=== PATIENT | male | born 1960 | race African-American/Black ===

== ENCOUNTER 2018-04-07 03:26 | Emergency (ER) | payer MEDICAID ==
[~2018-04-07] VITALS: Ht 182.9 cm; Wt 122.0 kg
[~2018-04-07 03:26] MED LIST: AMLO5TAB88 PO; CLON0.2T PO; CLOP75TA16 PO; FURO-151 PO; GLIP5TAB12 PO; METF10002 PO; SIMVASTATIN PO; SPIR25TA4 PO
[2018-04-07] MEDS ORDERED: ONDANSETRON HCL 4MG/2ML VIAL IV STA (04:50)
[2018-04-07] MEDS ORDERED: MORPHINE SULFATE 4 MG/ML CPJ (NOT FOR IM USE) IV STA (04:50)
[2018-04-07] MEDS ORDERED: SODIUM CHLORIDE 0.9% 1,000 ML IV ONE (04:50)
[2018-04-07] MEDS ORDERED: CLINDAMYCIN 600 MG in DEXTROSE 5% WATER 50 ML IV ONE (05:00)
[2018-04-07 05:28] LABS: BASOPHILS % 0.2 % (0.0-2.0); HEMOGLOBIN. 12.9 g/dL (14.0-18.0); LYMPHOCYTES % 12.5 % (20.0-50.0); MEAN CORPUSCULAR HEMOGLOBIN 28.4 pg (28.0-32.0); MEAN CORPUSCULAR VOLUME 81.3 fL (80.0-94.0); MONOCYTES % 9.9 % (2.0-8.0); NEUTROPHILS % 77.4 % (40.0-76.0); PLATELET 180 x1000/uL (130-400); RED BLOOD CELL COUNT 4.55 mill/uL (4.7-6.1); RED CELL DISTRIBUTION WIDTH 12.7 % (11.6-14.6)
[2018-04-07 05:32] LABS: CHLORIDE 103 mEq/L (98-107)
[2018-04-07 07:01] VITALS: BP 148/78
== END 2018-04-07 07:06 | disposition home or self-care (01) ==
LOC: ER 03:43
DX: L03.115 Cellulitis of right lower limb (principal); E78.00 Pure hypercholesterolemia, unspecified; I10 Essential (primary) hypertension; E11.9 Type 2 diabetes mellitus without complications; F14.10 Cocaine abuse, uncomplicated; Z79.84 Long term (current) use of oral hypoglycemic drugs; Z95.5 Presence of coronary angioplasty implant and graft; Z95.820 Peripheral vascular angioplasty status with implants and grafts
CPT/HCPCS: 36415; 73560; 80053; 83605; 85025; 87040; 96365; 96366; 96375; 99285; J2270; J2405; J3490; J7030; J7060

== ENCOUNTER 2018-09-22 05:40 | Emergency (ER) | payer MEDICAID ==
[~2018-09-22] VITALS: Ht 182.9 cm; Wt 116.0 kg
[~2018-09-22 05:40] MED LIST changes: +METF-416 PO; -METF10002 PO; -SPIR25TA4 PO; +SPIR25TA6 PO
[2018-09-22 07:24] VITALS: BP 130/66
== END 2018-09-22 07:30 | disposition home or self-care (01) ==
LOC: ER 05:40
DX: R04.0 Epistaxis (principal); E11.9 Type 2 diabetes mellitus without complications; I10 Essential (primary) hypertension; E78.00 Pure hypercholesterolemia, unspecified; I51.9 Heart disease, unspecified; F14.10 Cocaine abuse, uncomplicated; Z86.73 Personal history of transient ischemic attack (TIA), and cerebral infarction without residual deficits; Z79.899 Other long term (current) drug therapy; Z98.890 Other specified postprocedural states
CPT/HCPCS: 82962; 99283

== ENCOUNTER 2019-05-21 17:27 | Emergency (ER) | payer MEDICAID ==
[~2019-05-21] VITALS: Ht 182.9 cm; Wt 107.9 kg
[~2019-05-21 17:27] MED LIST changes: -CLOP75TA16 PO; +CLOP75TA4 PO
[2019-05-21 19:45] VITALS: BP 136/92
== END 2019-05-21 19:56 | disposition home or self-care (01) ==
LOC: ER 17:27
DX: K64.4 Residual hemorrhoidal skin tags (principal); F14.10 Cocaine abuse, uncomplicated
CPT/HCPCS: 99283

== ENCOUNTER 2019-11-30 18:19 | Emergency (ER) | payer MEDICAID ==
[~2019-11-30] VITALS: Ht 182.9 cm; Wt 107.0 kg
[2019-11-30] MEDS ORDERED: SULFAMETHOXAZOLE/TRIMETHOPRIM 400/80MG TAB PO ONE (20:45)
[2019-11-30] MEDS ORDERED: LIDOCAINE HCL/PF 1% 10 MG/ML 5ML VIAL IJ ONE ×2 (20:45)
[2019-11-30] MEDS ORDERED: CEFTRIAXONE SODIUM 1 G/VIAL IM ONE (20:45)
[2019-11-30 22:06] VITALS: BP 145/102
== END 2019-11-30 22:08 | disposition home or self-care (01) ==
LOC: ER 18:19
DX: L03.032 Cellulitis of left toe (principal); E11.9 Type 2 diabetes mellitus without complications; E78.00 Pure hypercholesterolemia, unspecified; I11.0 Hypertensive heart disease with heart failure; I50.9 Heart failure, unspecified; F14.10 Cocaine abuse, uncomplicated
CPT/HCPCS: 10060; 82962; 96372; 99283; A4217; J0696; J3490; Z7610

== ENCOUNTER 2019-12-02 17:43 | Emergency (ER) | payer MEDICAID ==
[~2019-12-02] VITALS: Ht 182.9 cm; Wt 107.0 kg
[2019-12-02 17:52] VITALS: BP 137/100
== END 2019-12-02 19:15 | disposition home or self-care (01) ==
LOC: ER 17:59
DX: M79.674 Pain in right toe(s) (principal); E11.9 Type 2 diabetes mellitus without complications; I10 Essential (primary) hypertension; E78.00 Pure hypercholesterolemia, unspecified; F14.10 Cocaine abuse, uncomplicated; Z79.899 Other long term (current) drug therapy; Z79.84 Long term (current) use of oral hypoglycemic drugs
CPT/HCPCS: 99281

== ENCOUNTER 2020-02-22 01:51 | Emergency (ER) | payer MEDICAID ==
[~2020-02-22] VITALS: Ht 182.9 cm; Wt 110.9 kg
[2020-02-22] MEDS ORDERED: SODIUM CHLORIDE 0.9% 1,000 ML IV ONE (02:36)
[2020-02-22] MEDS ORDERED: VANCOMYCIN 1 G PREMIX 200 ML IV ONE (02:45)
[2020-02-22 03:12] LABS: BASOPHILS % 0.7 % (0.0-2.0); HEMATOCRIT. 34.3 % (42.0-52.0); HEMOGLOBIN. 11.8 g/dL (14.0-18.0); LYMPHOCYTES % 11.7 % (20.0-50.0); MEAN CORPUSCULAR VOLUME 81.3 fL (80.0-94.0); MEAN PLATELET VOLUME 8.4 fl (7.4-10.4); MONOCYTES % 6.4 % (2.0-8.0); NEUTROPHILS % 81.2 % (40.0-76.0); PLATELET 290 x1000/uL (130-400); RED BLOOD CELL COUNT 4.21 mill/uL (4.7-6.1); RED CELL DISTRIBUTION WIDTH 14.9 % (11.6-14.6)
[2020-02-22 03:18] LABS: CHLORIDE 101 mEq/L (98-107)
[2020-02-22] MEDS ORDERED: IOHEXOL-300 100 ML BOTTLE ONE (06:56)
[2020-02-22 07:53] VITALS: BP 143/100
== END 2020-02-22 12:54 | disposition short-term general hospital (02) ==
LOC: ER 01:51 → CANBEDREQ 09:52 → ER 12:54
DX: L03.116 Cellulitis of left lower limb (principal); R00.0 Tachycardia, unspecified; E11.9 Type 2 diabetes mellitus without complications; I10 Essential (primary) hypertension; Z79.899 Other long term (current) drug therapy
CPT/HCPCS: 36415; 71045; 73701; 80053; 82962; 83605; 84145; 85025; 87040; 93005; 96365; 96366; 99285; J3370; J7030; Q9967

== ENCOUNTER 2020-06-04 21:01 | Emergency (ER) | payer OTHER, MEDICAID ==
[~2020-06-04] VITALS: Ht 182.9 cm; Wt 102.0 kg
[2020-06-04 21:40] VITALS: BP 132/93
== END 2020-06-04 23:15 | disposition home or self-care (01) ==
LOC: ER 21:01
DX: Z48.01 Encounter for change or removal of surgical wound dressing (principal); T81.30XD Disruption of wound, unspecified, subsequent encounter; I10 Essential (primary) hypertension; Z90.49 Acquired absence of other specified parts of digestive tract
CPT/HCPCS: 99283

== ENCOUNTER 2022-01-12 18:49 | Inpatient (IN) | payer MEDICAID, OTHER ==
[~2022-01-12] VITALS: Ht 182.9 cm; Wt 104.3 kg
[~2022-01-12 18:49] MED LIST changes: +CLOP-31 PO; -CLOP75TA4 PO
[2022-01-12] MEDS ORDERED: DOPAMINE 400MG/250ML PREMIX 250 ML IV ONE (19:30)
[2022-01-12 20:11] LABS: BASOPHILS % 0.1 % (0.0-2.0); HEMATOCRIT. 33.1 % (42.0-52.0); HEMOGLOBIN. 10.9 g/dL (14.0-18.0); LYMPHOCYTES % 9.4 % (20.0-50.0); MEAN CORPUSCULAR VOLUME 82.1 fL (80.0-94.0); MEAN PLATELET VOLUME 9.9 fl (7.4-10.4); MONOCYTES % 5.5 % (2.0-8.0); PLATELET 171 x1000/uL (130-400); RED BLOOD CELL COUNT 4.04 mill/uL (4.7-6.1); RED CELL DISTRIBUTION WIDTH 14.2 % (11.6-14.6)
[2022-01-12 20:18] LABS: BG BASE EXCESS -2.3 mmol/L (-2.0-2.0); BG CARBOXYHEMOGLOBIN 0.4 % (0.5-1.5); BG DEOXYHEMOGLOBIN 6.8 % (0.0-5.0); BG HCO3 ACT 21.4 mmol/L (22.0-26.0); BG METHEMOGLOBIN 0.2 % (0.0-1.5); BG OXYGEN SATURATION 93.2 % (92.0-98.5); BG OXYHEMOGLOBIN 92.6 % (94.0-97.0); BG PCO2 33.2 mmHg (35.0-45.0); BG PH 7.427 (7.350-7.450); BG PO2 64.5 mmHg (75.0-100.0); BG SAMPLE SITE RIGHT RADIAL; BG TOTAL HEMOGLOBIN 11.6 g/dL (12.0-18.0); BG TOTAL RESPIRATORY RATE 18 b/min; BG VENT MODE NASAL CANNULA
[2022-01-12 20:20] LABS: CHLORIDE 106 mEq/L (98-107)
[2022-01-12 20:23] LABS: INR 1.1; PROTHROMBIN TIME 11.5 sec (9.6-11.0)
[2022-01-12 20:24] LABS: ETHANOL BLOOD < 10 mg/dL
[2022-01-12] MEDS ORDERED: NOREPINEPHRINE 8 MG in DEXT 5% WATER 242 ML IV STA (20:55)
[2022-01-12] MEDS ORDERED: NOREPINEPHRINE 8MG/250ML PMX 250 ML IV ONE (21:15)
[2022-01-12] MEDS ORDERED: NOREPINEPHRINE 8MG/250ML PMX 250 ML IV SCH (21:15)
[2022-01-12] MEDS ORDERED: ONDANSETRON HCL 4MG/2ML INJ IV ONE (22:00)
[2022-01-12] MEDS ORDERED: NOREPINEPHRINE 8 MG in DEXT 5% WATER 242 ML IV PRN (23:15)
[2022-01-13] MEDS ORDERED: ACETAMINOPHEN 325MG TABLET PO PRN ×2 (00:15)
[2022-01-13] MEDS ORDERED: DIPHENHYDRAMINE 50MG/ML VIAL IV PRN (00:15)
[2022-01-13] MEDS ORDERED: ONDANSETRON HCL 4MG/2ML INJ IV PRN (00:15)
[2022-01-13] MEDS ORDERED: MAGNESIUM/ALUMINUM HYDROXIDE/SIMETHICONE 30ML UDC PO PRN (00:15)
[2022-01-13] MEDS ORDERED: ZOLPIDEM TARTRATE 5MG TABLET PO PRN (00:15)
[2022-01-13] MEDS ORDERED: HYDRALAZINE 20MG/ML VIAL IV PRN (00:15)
[2022-01-13] MEDS ORDERED: DEXTROSE 50% WATER 50ML SYRINGE IV PRN (00:15)
[2022-01-13] MEDS ORDERED: DOPAMINE HCL 400 MG in DEXT 5% WATER 240 ML IV SCH (03:00)
[2022-01-13 03:25] VITALS: BP 107/81
[2022-01-13 04:00] VITALS: BP 107/81
[2022-01-13 04:06] LABS: CLARITY URINE CLOUDY (CLEAR); COLOR URINE DARK YELLOW (YELLOW); KETONES URINE TRACE (NEGATIVE); LEUKOCYTE ESTERASE URINE TRACE (NEGATIVE); NITRITE URINE NEGATIVE (NEGATIVE); OCCULT BLOOD URINE NEGATIVE (NEGATIVE); PH URINE 5.5 (4.5-8.0); PROTEIN URINE 1+ (NEGATIVE); SPECIFIC GRAVITY URINE 1.019 (1.005-1.030)
[2022-01-13 04:29] LABS: *AMPHETAMINES SCREEN URINE NEGATIVE (NEGATIVE); *BARBITURATES SCREEN URINE NEGATIVE (NEGATIVE); *BENZODIAZEPINES SCREEN URINE PRESUMTIVE POSITIVE (NEGATIVE); *COCAINE SCREEN URINE PRESUMTIVE POSITIVE (NEGATIVE); METHADONE URINE SCREEN NEGATIVE (NEGATIVE)
[2022-01-13 04:30] LABS: CANNABINOID URINE SCREEN NEGATIVE (NEGATIVE); OPIATES URINE SCREEN NEGATIVE (NEGATIVE); PHENCYCLIDINE URINE SCREEN NEGATIVE (NEGATIVE)
[2022-01-13] MEDS: INSULIN LISPRO 100 UNITS/ML SUBCUT SCH ×4 (06:58→21:21)
[2022-01-13] MEDS: BLOOD SUGAR DIAGNOSTIC STRIP TEST SCH ×4 (06:58→21:11)
[2022-01-13] MEDS ORDERED: METFORMIN HCL 500MG TABLET PO SCH (07:00)
[2022-01-13 08:00] VITALS: BP 114/76
[2022-01-13] MEDS ORDERED: LOSA50TA41 MT (08:38)
[2022-01-13] MEDS ORDERED: CARV25TA47 PO (08:39)
[2022-01-13] MEDS ORDERED: ATOR10TA MT (08:39)
[2022-01-13] MEDS ORDERED: ASPI-1497 PO (08:43)
[2022-01-13] MEDS ORDERED: SEMA0.25 SQ (08:43)
[2022-01-13] MEDS ORDERED: METF-414 MT (08:43)
[2022-01-13] MEDS ORDERED: CLON0.3T PO (08:43)
[2022-01-13] MEDS ORDERED: CLOP-31 MT (08:43)
[2022-01-13] MEDS ORDERED: FURO-151 PO (08:43)
[2022-01-13] MEDS ORDERED: VERA360C2 MT (08:43)
[2022-01-13] MEDS: ASPIRIN 81MG EC TABLET PO SCH (08:57)
[2022-01-13] MEDS: SODIUM CHLORIDE 0.9% INJ 3ML FLUSH IVF SCH ×2 (08:57→12:58)
[2022-01-13] MEDS: CLOPIDOGREL 75MG TABLET PO SCH (08:57)
[2022-01-13 12:00] VITALS: BP 147/100
[2022-01-13] MEDS: CARVEDILOL 12.5MG TABLET PO SCH ×2 (15:40→21:11)
[2022-01-13 16:00] VITALS: BP 121/88
[2022-01-13] MEDS: PIPERACILLIN/TAZOBACTAM 3.375 G in DEXTROSE 5% WATER 50 ML IV SCH ×2 (16:24→21:11)
[2022-01-13] MEDS ORDERED: VANCOMYCIN 1,750 MG in DEXT 5% WATER 500 ML IV NR (17:00)
[2022-01-13] MEDS: CLONIDINE 0.1MG TABLET PO PRN (22:40)
[2022-01-14] VITALS (7 sets, daily range): BP systolic 144–183; BP diastolic 89–117
[2022-01-14] MEDS ORDERED: VANCOMYCIN 750MG PREMIX 150 ML IV SCH (05:00)
[2022-01-14] MEDS: SODIUM CHLORIDE 0.9% INJ 3ML FLUSH IVF SCH ×3 (06:00→13:15)
[2022-01-14] MEDS: CLONIDINE 0.1MG TABLET PO PRN (06:33)
[2022-01-14 07:31] LABS: BASOPHILS % 0.4 % (0.0-2.0); CHLORIDE 107 mEq/L (98-107); HEMATOCRIT. 31.7 % (42.0-52.0); HEMOGLOBIN. 10.8 g/dL (14.0-18.0); LYMPHOCYTES % 12.4 % (20.0-50.0); MEAN CORPUSCULAR HEMOGLOBIN 27.2 pg (28.0-32.0); MEAN CORPUSCULAR VOLUME 80.1 fL (80.0-94.0); MEAN PLATELET VOLUME 9.6 fl (7.4-10.4); MONOCYTES % 9.7 % (2.0-8.0); NEUTROPHILS % 77.5 % (40.0-76.0); PLATELET 164 x1000/uL (130-400); RED BLOOD CELL COUNT 3.96 mill/uL (4.7-6.1); RED CELL DISTRIBUTION WIDTH 14.5 % (11.6-14.6)
[2022-01-14 07:38] LABS: PHOSPHORUS 2.6 mg/dL (2.5-4.9)
[2022-01-14] MEDS: INSULIN LISPRO 100 UNITS/ML SUBCUT SCH ×3 (07:40→17:40)
[2022-01-14] MEDS: BLOOD SUGAR DIAGNOSTIC STRIP TEST SCH ×3 (07:44→17:58)
[2022-01-14] MEDS: PIPERACILLIN/TAZOBACTAM 3.375 G in DEXTROSE 5% WATER 50 ML IV SCH ×3 (07:53→14:00)
[2022-01-14] MEDS: CLOPIDOGREL 75MG TABLET PO SCH (10:45)
[2022-01-14] MEDS: CARVEDILOL 12.5MG TABLET PO SCH (10:46)
[2022-01-14] MEDS: ASPIRIN 81MG EC TABLET PO SCH (10:46)
[2022-01-14] MEDS ORDERED: LOSARTAN POTASSIUM 100 MG TABLET PO SCH (11:30)
[2022-01-14] MEDS ORDERED: AMLODIPINE 5MG TABLET PO SCH (14:36)
[2022-01-14] MEDS ORDERED: HYDRALAZINE 20MG/ML VIAL IV NR (18:00)
[2022-01-14] MEDS ORDERED: VANCOMYCIN 1G PREMIX 200 ML IV SCH (18:00)
== END 2022-01-14 21:16 | disposition home or self-care (01) | DRG 812 ==
LOC: ER 18:49 → MICUSO 20:37 → EDBEDREQ 20:40 → EDBEDREQSVC 20:40 → EDBEDREQTM 20:40 → 8WST 01-13 04:18
PROVIDERS: ADMIT Internal Medicine; ATTEND Internal Medicine
DX: T46.5X1A Poisoning by other antihypertensive drugs, accidental (unintentional), initial encounter (principal); A41.9 Sepsis, unspecified organism; I95.89 Other hypotension; E44.1 Mild protein-calorie malnutrition; E11.65 Type 2 diabetes mellitus with hyperglycemia; I11.0 Hypertensive heart disease with heart failure; E66.9 Obesity, unspecified; F14.10 Cocaine abuse, uncomplicated; R74.01 Elevation of levels of liver transaminase levels; I34.0 Nonrheumatic mitral (valve) insufficiency; Z20.822 Contact with and (suspected) exposure to COVID-19; I25.10 Atherosclerotic heart disease of native coronary artery without angina pectoris; Z87.891 Personal history of nicotine dependence; Z90.49 Acquired absence of other specified parts of digestive tract; Z95.5 Presence of coronary angioplasty implant and graft; Z79.84 Long term (current) use of oral hypoglycemic drugs; Z79.899 Other long term (current) drug therapy; Y92.89 Other specified places as the place of occurrence of the external cause; Z68.31 Body mass index [BMI] 31.0-31.9, adult; Z71.51 Drug abuse counseling and surveillance of drug abuser; R10.9 Unspecified abdominal pain; I50.32 Chronic diastolic (congestive) heart failure; N39.0 Urinary tract infection, site not specified
CPT/HCPCS: 36415; 36600; 71045; 76705; 80053; 80305; 80320; 81003; 82375; 82805; 82962; 83036; 83605; 83735; 83880; 84100; 84145; 84443; 84484; 85025; 87426; 93005; 93306; 93970; 99291; J0360; J1265; J1815; J2405; J2543; J3370; J3490; J7040; J7060; G0480

== ENCOUNTER 2022-01-18 06:32 | Emergency (ER) | payer MEDICAID ==
[~2022-01-18] VITALS: Ht 182.9 cm; Wt 109.0 kg
[~2022-01-18 06:32] MED LIST changes: +ASPI-1497 PO; +ATOR10TA MT; +CARV25TA47 PO; +CLON0.3T PO; +CLOP-31 MT; +LOSA50TA41 MT; +METF-414 MT; +SEMA0.25 SQ; +VERA360C2 MT
[2022-01-18 07:33] LABS: BASOPHILS % 0.2 % (0.0-2.0); HEMATOCRIT. 33.6 % (42.0-52.0); HEMOGLOBIN. 11.5 g/dL (14.0-18.0); LYMPHOCYTES % 9.5 % (20.0-50.0); MEAN CORPUSCULAR HEMOGLOBIN 27.6 pg (28.0-32.0); MEAN CORPUSCULAR VOLUME 80.3 fL (80.0-94.0); MONOCYTES % 6.7 % (2.0-8.0); NEUTROPHILS % 83.6 % (40.0-76.0); PLATELET 193 x1000/uL (130-400); RED BLOOD CELL COUNT 4.19 mill/uL (4.7-6.1); RED CELL DISTRIBUTION WIDTH 14.4 % (11.6-14.6)
[2022-01-18] MEDS ORDERED: ENALAPRIL 2.5MG/2ML VIAL 2ML IV ONE (07:45)
[2022-01-18] MEDS ORDERED: FUROSEMIDE 40MG/4ML VIAL IVP ONE (07:45)
[2022-01-18] MEDS ORDERED: ENALAPRIL 1.25MG/ML VIAL 1ML IV ONE (08:00)
[2022-01-18] MEDS ORDERED: HYDRALAZINE HCL 10MG TABLET PO ONE (09:15)
[2022-01-18 09:51] LABS: CHLORIDE 108 mEq/L (98-107)
[2022-01-18] MEDS ORDERED: HYDRALAZINE HCL 50MG TABLET PO ONE (11:30)
[2022-01-18] MEDS ORDERED: LABETALOL 5MG/ML SYR 20 MG/4 ML SYRINGE IV ONE ×2 (15:15→16:00)
[2022-01-18 15:23] VITALS: BP 147/110
== END 2022-01-18 16:14 | disposition short-term general hospital (02) ==
LOC: ER 06:59
DX: I11.0 Hypertensive heart disease with heart failure (principal); I50.9 Heart failure, unspecified; Z20.822 Contact with and (suspected) exposure to COVID-19; R00.0 Tachycardia, unspecified; D64.9 Anemia, unspecified; I25.10 Atherosclerotic heart disease of native coronary artery without angina pectoris; Z95.5 Presence of coronary angioplasty implant and graft; Z79.82 Long term (current) use of aspirin; Z79.84 Long term (current) use of oral hypoglycemic drugs; Z79.899 Other long term (current) drug therapy
CPT/HCPCS: 36415; 71045; 80053; 83880; 84484; 85025; 87426; 93005; 96374; 96375; 99285; J1940; J3490

== ENCOUNTER 2023-04-19 15:40 | Emergency (ER) | payer MEDICAID ==
[~2023-04-19] VITALS: Ht 182.9 cm; Wt 102.0 kg
[~2023-04-19 15:40] MED LIST changes: -CLON0.2T PO; -CLOP-31 PO; -METF-414 MT
[2023-04-19 16:05] VITALS: BP 132/95
== END 2023-04-19 16:39 | disposition home or self-care (01) ==
LOC: ER 15:40
DX: Z00.00 Encounter for general adult medical examination without abnormal findings (principal); I11.0 Hypertensive heart disease with heart failure; I50.9 Heart failure, unspecified; Z79.899 Other long term (current) drug therapy; Z90.49 Acquired absence of other specified parts of digestive tract
CPT/HCPCS: 99281